=== PATIENT | female | born 1985 | race Caucasian/White ===

== ENCOUNTER → 2018-01-20 | Outpatient (CLI) | payer MEDICAID ==
[~2018-01-20] MED LIST: HYDR-4309 PO; IBUP600T22 PO; LOR5/325 PO; OMEP-137 PO
--- NOTE | 2018-01-20 13:29 | RADIOLOGY IMAGING REPORT ---
[place] [facility] [place] Eleni Ozuna : 1985 MR: [id number] V: [id number] EXAM DATE: ORDERING PHYSICIAN: NIDA SOLIMAN TECHNOLOGIST: Location: [facility] - [place] Patient: Eleni Ozuna : 1985 Visit/Account:[id number] Date of Sevice: 01/20/2018 Technique: CHEST PA AND LAT HISTORY: Cough, tightness in chest COMPARISON: None available Findings: The lungs are clear. No pleural effusion or pneumothorax. The cardiomediastinal silhouett e is normal. Impression: 1. No acute cardiopulmonary process. Report Dictated By: Mykel Bettencourt DO at 01/20/2018 1:24 PM Report E-Signed By: Mykel Bettencourt DO at 01/20/2018 1:25 PM WSN:[id number]
== END ==
LOC: RAD 12:46
PROVIDERS: ATTEND Obstetrics & Gynecology
DX: R05 Cough (principal)
CPT/HCPCS: 71046

== ENCOUNTER 2018-07-03 12:57 | Inpatient (IN) | payer MEDICAID ==
[~2018-07-03] VITALS: Ht 162.6 cm; Wt 92.5 kg
[2018-07-03 13:09] VITALS: BP 157/87; Ht 162.6 cm; Wt 92.5 kg
[2018-07-03 14:02] LABS: PLATELET COUNT, AUTOMATED 177 K/uL (150-450)
[2018-07-03] MEDS ORDERED: OXYTOCIN 30 UNIT/D5LR 500 ML 500 ML IV PRN (15:00)
[2018-07-03] MEDS ORDERED: TERBUTALINE SULF 1 MG/ML VIAL SUBQ PRN (15:00)
[2018-07-03] MEDS ORDERED: PENICILLIN G 5 MILLUN/100 ML 100 ML IVPB ONE ×2 (15:00)
--- NOTE | 2018-07-03 15:09 | History & Physical ---
History of Present Illness Age of Patient: 32 : 3 Para or TPAL: 2002 EDC per LMP: Jul 20, 2018 Estimated Gestational Age: 37.4 Chief Complaint The patient is a 32 year old 3 para 1103 admitted at 37 4/7 weeks estimated gestational age with an estimated date of delivery 07/20/18. Patient is admitted with complaint of contractions . No vaginal bleeding. Good movement and occasional contractions. She denies headaches or vision changes or RUQ pain, but has had nausea and vomiting at night. She was evaluated for active labor. She had an uncomplicated course prior to admission but has history of preeclampsia. Her record was reviewed. History Allergies: Coded Allergies: hydrocodone (Verified Allergy, Mild, 10/26/15) Med Rec Home Meds Active Scripts Hydrocodone Bit/Acetaminophen (HYDROCODON-ACETAMINOPHEN 5-325) 1 Each Tablet, 1 EACH PO Q4-6H, #20 TAKE ONE TABLET BY MOUTH EVERY 4-6 HOURS NEEDED FOR PAIN Prov:ELISE SOLOMON DO 10/27/15 Ibuprofen (IBUPROFEN) 600 Mg Tablet, 1 TAB PO TID, #30 Prov:ELISE SOLOMON DO 10/27/15 Exam General Exam Vital Signs Vital Signs Date Time Temp Pulse Resp B/P (MAP) Pulse Ox O2 Delivery O2 Flow Rate FiO2 07/03/18 13:09 97.3 77 22 157/87 (110) 96 Room Air Cardiovascular: Regular Rate and Rhythm Respiratory: Clear to Auscultation Abdomen: Soft, Non-Tender, Non-Distended, Gravid - Non-Tender Extremities: No Edema Cervical Dialation: 3 Cervical Effacement (%): 75 Cervical Consistency: Soft Cervical Position: Mid Station: -1 Presentation: Vertex Uterine Contractions(Q min): 4 Uterine Contraction Strength: Moderate Fetus Heart Tones: 130 Heart Tone Variabilty: Moderate FHT Accelerations: 15X15 FHT Category: I Medical Decision Making Data Points Result Diagram: 07/03/18 1350 07/03/18 1350 Assessment and Plan Problems: (1) induced hypertension, antepartum Assessment & Plan: No severe features identified and not proteinuric but is in early labor with cervical change will augment and start PCN for GBS prophylaxis Copies to: NIDA SOLIMAN MD, JOHN MD Jul 03, 2018 15:09
[2018-07-03] MEDS ORDERED: FAMOTIDINE(*) 20MG/50ML PREMIX 50 ML IVPB PRN (15:35)
[2018-07-03] MEDS ORDERED: DLR(*) 1000 ML BAG 1,000 ML IV PRN (15:35)
[2018-07-03] MEDS ORDERED: FLUSH 10 ML SYR IVP PRN (15:35)
[2018-07-03] MEDS ORDERED: cefOXitin/DEX(*) 2GM/50ML PREM 50 ML IVPB PRN (15:35)
[2018-07-03] MEDS ORDERED: LIDOCAINE 1% LOCAL 300 MG/30ML INJ PRN (15:35)
[2018-07-03] MEDS ORDERED: METOCLOPRAMIDE 10 MG/2 ML SDV IVP PRN (15:35)
[2018-07-03] MEDS: LR(*) 1000 ML BAG 1,000 ML IV PRN ×2 (15:58→16:44)
[2018-07-03] MEDS ORDERED: EPIDURAL KEYS XX PRN (16:20)
[2018-07-03] MEDS ORDERED: BUPIVACAINE 0.25% MPF INJ EPI PRN (16:25)
[2018-07-03] MEDS ORDERED: BUPIVACAINE 0.5% INJ 30ML VIAL EPI PRN (16:25)
[2018-07-03] MEDS ORDERED: LIDOCAINE/PF 2% 200MG/10ML AMP 200 MG/10 ML AMPUL EPI PRN (16:25)
[2018-07-03] MEDS ORDERED: LIDO/EPI 2% MPF 1:200,000 20ML EPI PRN (16:25)
[2018-07-03] MEDS ORDERED: FENTANYL/ROPIVACAINE 100 ML BAG EPI PRN (16:25)
[2018-07-03] MEDS ORDERED: fentaNYL CITR 100 MCG/2 ML AMP IT PRN (16:25)
--- NOTE | 2018-07-03 16:32 | Labor Progress Note ---
Labor Subjective Progress Notes Subjective feeling contractions Labor Objective Vital Signs Vital Signs Date Time Temp Pulse Resp B/P (MAP) Pulse Ox O2 Delivery O2 Flow Rate FiO2 07/03/18 13:09 97.3 77 22 157/87 (110) 96 Room Air Cervical Dialation: 3 Cervical Effacement (%): 75 Cervical Consistency: Soft Cervical Position: Mid Station: 0 Presentation: Vertex Uterine Contractions(Q min): 3 Uterine Contraction Strength: Moderate Fetus Heart Tones: 130 Heart Tone Variabilty: Moderate FHT Accelerations: 15X15 FHT Category: I Other Result Diagram: 07/03/18 1350 07/03/18 1350 Assessment and Plan Problems: (1) induced hypertension, antepartum Assessment & Plan: desires epidural will get and then NIDA JAMES MD Jul 03, 2018 16:32
--- NOTE | 2018-07-03 16:44 | Anesthesia OB Pre-Anes Eval ---
History of Present Illness OB Anesthesia Diagnosis: gestational hypertension, induction - medical Current Complication: gestational hypertention EDC: Jul 20, 2018 : 3 Para: 3 Pain Ratin Heart Tones: 132 Result Diagram: 07/03/18 1350 07/03/18 1350 Height (Inches): 64.00 Weight (Pounds): 204 BMI Calculated: 35.01 Past Medical History Medical History: no pertinent history Surgical History: no surgical history Previous Anesthesia: epidural Attended Childbirth Classes?: No Hx Anesthesia Reactions: No Hx Family Anesthesia Reaction: No Current Medications: pitocin Past Complications: gestational hypertention Home Meds Active Scripts Hydrocodone Bit/Acetaminophen (HYDROCODON-ACETAMINOPHEN 5-325) 1 Each Tablet, 1 EACH PO Q4-6H, #20 TAKE ONE TABLET BY MOUTH EVERY 4-6 HOURS NEEDED FOR PAIN Prov:ELISE SOLOMON DO 10/27/15 Ibuprofen (IBUPROFEN) 600 Mg Tablet, 1 TAB PO TID, #30 Prov:ELISE SOLOMON DO 10/27/15 Allergies: Coded Allergies: hydrocodone (Verified Allergy, Mild, 10/26/15) Anesthesia OB ROS Airway Class: ll GI ROS: clear liquids Last Solids Date: Jul 03, 2018 Last Solids Time: 07:30 ASA Classification: 3 Assessment and Plan Anesthesia Plan: DAREN CURRY CRNA Jul 03, 2018 16:44
[2018-07-03] MEDS ORDERED: EPINEPHrine HCL 1 MG/ML AMP ONE (17:21)
--- NOTE | 2018-07-03 17:39 | Labor Progress Note ---
Labor Subjective Progress Notes Subjective COMFORTABLE WITH EPIDURAL Labor Pain: Comfortable Labor Objective Vital Signs Vital Signs Date Time Temp Pulse Resp B/P (MAP) Pulse Ox O2 Delivery O2 Flow Rate FiO2 07/03/18 13:09 97.3 77 22 157/87 (110) 96 Room Air Cervical Dialation: 4 Cervical Effacement (%): 80 Cervical Consistency: Soft Cervical Position: Anterior Station: 0 Presentation: Vertex Uterine Contractions(Q min): 3 Fetus Heart Tones: 120 Heart Tone Variabilty: Moderate FHT Accelerations: 15X15 FHT Category: I Other Result Diagram: 07/03/18 1350 07/03/18 1350 Assessment and Plan Problems: (1) induced hypertension, antepartum (2) Active labor at term Assessment & Plan: AROM CLEAR FLUID BP STABLE WILL MONITOR FOR CHANGE NIDA SOLIMAN MD Jul 03, 2018 17:39
--- NOTE | 2018-07-03 18:53 | Labor Progress Note ---
Labor Subjective Progress Notes Subjective COMFORTABLE WITH EPIDURAL Vaginal Discharge/Fluid: Clear Fluid Labor Pain: Comfortable Labor Objective Vital Signs Vital Signs Date Time Temp Pulse Resp B/P (MAP) Pulse Ox O2 Delivery O2 Flow Rate FiO2 07/03/18 13:09 97.3 77 22 157/87 (110) 96 Room Air Cervical Dialation: 4 Cervical Effacement (%): 85 Cervical Consistency: Soft Cervical Position: Mid Station: 0 Presentation: Vertex Uterine Contractions(Q min): 3 Uterine Contraction Strength: Strong Fetus Heart Tones: 120 Heart Tone Variabilty: Moderate FHT Accelerations: 15X15 FHT Category: I Other Result Diagram: 07/03/18 1350 07/03/18 1350 Assessment and Plan Problems: (1) induced hypertension, antepartum (2) Active labor at term Assessment & Plan: IUPC PLACED, WILL MONITOR FOR CERVICAL CHANGE NIDA SOLIMAN MD Jul 03, 2018 18:53
[2018-07-03] MEDS ORDERED: OXYTOCIN 30 UNIT/D5LR 500 ML 0 ML ONE (19:19)
[2018-07-03] MEDS ORDERED: PHENYLEPHRINE/NS/PF 0.4MG/10ML ONE (19:19)
[2018-07-03] MEDS ORDERED: ONDANSETRON 4 MG/2 ML VIAL ONE (19:21)
[2018-07-03] MEDS ORDERED: OXYTOCIN 10 UNIT/ML SDV ONE ×2 (19:28→19:30)
[2018-07-03] MEDS ORDERED: DEXAMETHASONE SOD 4 MG/ML VIAL ONE (19:31)
[2018-07-03] MEDS: PENICILLIN G 2.5 MILLUN/100 ML 100 ML IVPB SCH ×2 (19:44→23:00)
[2018-07-03] MEDS ORDERED: ONDANSETRON 4 MG/2 ML VIAL IVP PRN (20:00)
--- NOTE | 2018-07-03 21:30 | Procedure Note ---
Anesthetic Placement Note Anesthesia Plan: CSE Permit for Anesthesia Signed: Yes Anesthesia Technique: Patient Sitting Anesthesia Prep: Chlorhexidine Interspace: L 4-5 Local Anesthetic: 1% Lidocaine, 25 Gauge Needle Amount Local - cc's: 3 Anesthesia Needle: 17g Touhy/Schliff Anesthesia Attempts: 1 Loss of Resistance: Normal Saline Depth of EVA (cm): 7 Epidural Needle Placement: No CSF, No Blood, No Parasthesia Intrathecal Needle: 27 Gauge Pencan Cerebral Spinal Fluid: Yes, Clear Catheter Insertion (cm): 12 Catheter Type: Call - Spring Wound Epidural Dressing: Tegaderm, Tape, Adhesive [place] Anesthesia Tray: Lot Number ([id number]), Expiration Date (2019-06-28), Reference Number ([id number]) Anesthesia Medications: Intrathecal Dose: mcg Fentanyl (25), mg Marcaine MPF (2.5) Epidural Test Dose: 1.5 Lido/Epi (1:200,000), Dose - mL (3), Time (1719), Negative Epidural Loading Dose: 0.2% Ropivicaine, With Fentanyl 2mcg/ml, Dose - ml (10) , Time (1724) Epidural Infusion: 0.2% Ropivicaine, With Fentanyl 2mcg/ml, Start Time: (1730) Epidural Pump Setting: Bolus Dose - mL (5), Lockout - Minutes (15), Maintenance Rate - mL/hr (10), Maximum per Hour - mL (30) Complications: None DAREN GARIBAY CRNA Jul 03, 2018 21:30
--- NOTE | 2018-07-03 21:32 | Anesthesia Progress Note ---
Progress/Maintenance Anesthesia Note Time: 21:15 Pain Intensity: 0 Pump: Off Motor Level: Bending Knees-Bilateral Assessment and Plan Anesthesia Plan: CSE Assessment viable . pump d/c'd Anesthesia Stop Day: Jul 03, 2018 Anesthesia Stop Time: 21:00 DAREN GARIBAY CRNA Jul 03, 2018 21:31
--- NOTE | 2018-07-03 21:38 | OB Delivery Note ---
Delivery Note Vaginal Delivery Type: Spont. Vaginal Delivery Delivery Date: Jul 03, 2018 Delivery Time: 20:37 Estimated Gestational Age(wks): 37.4 Delivery Anesthesia: Epidural Sex: Female Infant Weight (gms): 2966 Apgars: 1 Minute (8), 5 Minute (9) Repair Needed: Laceration, 2nd Degree Estimated Blood Loss: 400 Notes: EARLY SPONTANEOUS LABOR, GESTATIONAL HYPERTENSION WITHOUT SEVERE FEATURES, AUGMENTED WITH PITOCIN AND AROM CLEAR FLUID AFTER RECEIVING EPIDURAL. PROGRESSED FROM 5 TO COMPLETE RAPIDLY AND PUSHED EFFECTIVELY DELIVERING INFANT OVER MIDLINE LACERATION. SPONTANEOUS CRY AND MOVEMENT OF ALL 4 EXTREMITIES. CORD CLAMPED X 2 AND CUT. 3-0 VICRYL USED TO APPROXIMATE LACERATION NO COMPLICATIONS [facility] in Attendence: No Copies to: NIDA SOLIMAN MD, JOHN MD Jul 03, 2018 21:37
[2018-07-03] MEDS ORDERED: HYDROCORTISONE 2.5% CR 30GM TB PR PRN (21:40)
[2018-07-03] MEDS ORDERED: GLYCERIN/WITCH HAZEL LEAF 1 PK TP PRN (21:40)
[2018-07-03] MEDS ORDERED: INFLUENZA VIRUS VAC 0.5 ML SYR IM ONLY ONE (21:40)
[2018-07-03] MEDS ORDERED: MAGNESIUM HYDROXIDE* 30ML UDCP PO PRN (21:40)
[2018-07-03] MEDS ORDERED: BENZOCAINE 20% 60 ML BTL TP PRN (21:40)
[2018-07-03] MEDS ORDERED: DIPHTH/TETANUS/ACEL. PERTUSSIS IM ONLY ONE (21:40)
[2018-07-03] MEDS ORDERED: ACETAMINOPHEN 325 MG TAB PO PRN (21:40)
[2018-07-03] MEDS ORDERED: LANOLIN OINT 7 GM TUBE TP PRN (21:40)
[2018-07-03] MEDS ORDERED: MEASLES,MUMP,RUBELLA VAC 0.5ML SUBQ ONE (21:40)
[2018-07-03] MEDS ORDERED: HYDROmorphone HCL 2 MG TAB PO PRN (21:40)
[2018-07-03] MEDS ORDERED: IBUP800T37 PO (21:43)
--- NOTE | 2018-07-03 21:47 | OB/GYN Discharge Summary ---
Discharge Summary Reason for Hosp/Final Diag: (1) induced hypertension, antepartum (2) Active labor at term (3) care following vaginal delivery Hospital Course & Plan: vag delivery on day 2, Pain controlled, Tolerating diet and activity. Baby . Normal lochia. Lates Vital Signs Vital Signs Date Time Temp Pulse Resp B/P (MAP) Pulse Ox O2 Delivery O2 Flow Rate FiO2 07/03/18 13:09 97.3 77 22 157/87 (110) 96 Room Air Weight (Pounds): 204 Result Diagram: 07/03/18 1350 07/03/18 1350 Condition: Improved Discharge: Home, Self Residential Meds Active Scripts Hydromorphone Hcl (HYDROMORPHONE HCL) 2 Mg Tablet, 2 MG PO Q4H for PAIN, #20 TAB 0 Refills Prov:NIDA NARVAEZ MD 07/04/18 Ibuprofen (IBUPROFEN) 800 Mg Tablet, 1 TAB PO Q8H, #30 TAB 0 Refills Take with food every 8 hours. Prov:NIDA NARVAEZ MD 07/03/18 Reported Medications Omeprazole (OMEPRAZOLE) 20 Mg Tablet.dr, 20 MG PO BID, TAB 07/03/18 Discontinued Reported Medications Aspirin (ASPIRIN) 81 Mg Tab.chew, 81 MG PO QDAY, TAB.CHEW 07/03/18 Discontinued Scripts Hydrocodone Bit/Acetaminophen (HYDROCODON-ACETAMINOPHEN 5-325) 1 Each Tablet, 1 EACH PO Q4-6H, #20 TAKE ONE TABLET BY MOUTH EVERY 4-6 HOURS NEEDED FOR PAIN Prov:ELISE SOLOMON DO 10/27/15 Ibuprofen (IBUPROFEN) 600 Mg Tablet, 1 TAB PO TID, #30 Prov:ELISE SOLOMON DO 10/27/15 Follow up with: Dr. Narvaez [phone] Follow up in: 6 wks PP or PO, 5-7 days (BP CHECK) Discharge Diet: As Tolerates Discharge Activity: Pelvic Rest Copies to: NIDA NARVAEZ MD, JOHN MD Jul 03, 2018 21:46
[2018-07-03] MEDS ORDERED: OMEP-137 PO (22:02)
[2018-07-03] MEDS ORDERED: ASPI81TA94 PO (22:03)
[2018-07-03] MEDS: IBUPROFEN 800 MG TAB PO SCH (23:44)
[2018-07-04 02:00] VITALS: BP 102/56
[2018-07-04 06:00] VITALS: BP 105/62
[2018-07-04 08:00] VITALS: BP 119/76
--- NOTE | 2018-07-04 08:10 | OB/GYN Progress Note ---
OB Subjective Progress Notes Subjective Pain controlled, Tolerating diet and activity. Baby . Normal lochia. 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 Baby . Normal lochia. NIDA SOLIMAN MD Jul 04, 2018 08:10
[2018-07-04] MEDS ORDERED: HYDR2TAB4 PO (08:16)
[2018-07-04] MEDS: DOCUSATE CALCIUM 240 MG CAP PO SCH ×2 (08:55→21:46)
[2018-07-04] MEDS: MULTIVITAMINS (PRENATAL) TAB PO SCH (08:55)
[2018-07-04] MEDS: IBUPROFEN 800 MG TAB PO SCH ×2 (08:55→16:37)
[2018-07-04 11:00] VITALS: BP 104/70
[2018-07-04] MEDS ORDERED: PENICILLIN G 2.5 MILLUN/100 ML 100 ML IVPB SCH (11:00)
[2018-07-04 15:00] VITALS: BP 119/65
[2018-07-04 19:35] VITALS: BP 112/74
[2018-07-05 00:22] VITALS: BP 118/71
[2018-07-05] MEDS: IBUPROFEN 800 MG TAB PO SCH ×2 (01:47→09:29)
[2018-07-05 05:17] VITALS: BP 106/68
[2018-07-05 08:00] VITALS: BP 122/81
--- NOTE | 2018-07-05 08:32 | OB/GYN Progress Note ---
OB Subjective Progress Notes Subjective Pain controlled, Tolerating diet and activity. Baby . Normal lochia. 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 Baby . Normal lochia. NIDA SOLIMAN MD Jul 05, 2018 08:32
--- NOTE | 2018-07-05 08:35 | Anesthesia Post Eval Note ---
Anesthesia Post Eval Note Pt able to participate in Eval: Yes Cardiovascular Status: Satisfactory Respiratory Status: Satisfactory Pain Managment: Satisfactory PO Nausea/Vomiting: Satisfactory Temperature Management: Satisfactory Mental Status: Satisfactory Post-Op Hydration Status: Satisfactory Anesthesia Type: CSE Anesthesia Tolerance: patient ambulatory with VSS. No complications noted or stated by patient. DAREN GARIBAY CRNA Jul 05, 2018 08:35
[2018-07-05] MEDS: DOCUSATE CALCIUM 240 MG CAP PO SCH (09:29)
[2018-07-05] MEDS: MULTIVITAMINS (PRENATAL) TAB PO SCH (09:29)
== END 2018-07-05 09:50 | disposition home or self-care (01) | DRG 775 ==
LOC: OB 12:57
PROVIDERS: ADMIT Obstetrics & Gynecology; ATTEND Obstetrics & Gynecology
PROC: 10E0XZZ Delivery of Products of Conception, External Approach (ICD-10-PCS; principal; 2018-07-03)
PROC: 0KQM0ZZ Repair Perineum Muscle, Open Approach (ICD-10-PCS; 2018-07-03)
PROC: 10907ZC Drainage of Amniotic Fluid, Therapeutic from Products of Conception, Via Natural or Artificial Opening (ICD-10-PCS; 2018-07-03)
PROC: 10H07YZ Insertion of Other Device into Products of Conception, Via Natural or Artificial Opening (ICD-10-PCS; 2018-07-03)
DX: O13.4 Gestational [pregnancy-induced] hypertension without significant proteinuria, complicating childbirth (principal); O70.1 Second degree perineal laceration during delivery; Z3A.37 37 weeks gestation of pregnancy; Z37.0 Single live birth
CPT/HCPCS: 36415; 59025; 82040; 82247; 82310; 82374; 82435; 82565; 82570; 82947; 83615; 84075; 84132; 84155; 84156; 84295; 84450; 84460; 84520; 84550; 85025; 85027; 86850; 86900; 86901; J1100; J2370; J2405; J2540; J2590; J3010; J7120; S0020